=== PATIENT | female | born 1935 | race Caucasian/White ===

== ENCOUNTER → 2019-01-02 12:26 | Outpatient (CLI) | payer MEDICARE, OTHER, SELFPAY ==
--- NOTE | 2019-01-02 | DI.MRI.S_ITS ---
PROCEDURE: MR STROKE Pre- and post-contrast brain MRI, non-contrast brain MR angiogram, pre- and postcontrast neck MR angiogram INDICATIONS: Dizziness and giddiness TECHNIQUE: Brain: Noncontrast axial T1 spin echo, axial T2 fast spin echo, sagittal and axial FLAIR, coronal T2 fast spin echo, axial gradient echo, axial diffusion and ADC through the brain. After the administration of contrast, axial 3D VIBE of the cranial vasculature and brain. Brain MRA: Non-contrast 3-D time of flight MR angiogram, with multiple vufccwv-virnwrcvl-tlxekyfwkl (MIP) reformats performed. Neck MRA: Axial and sagittal TruFISP through the neck. Coronal dynamic MR angiogram during administration of contrast in the arterial and venous phases, with 3-dimenstional gkkmzgb-eqfsfcpjf-cqszsnsoxn (MIP) reformats constructed from subtraction images. COMPARISON: None. FINDINGS: Image quality: Excellent. BRAIN: CSF spaces: Ventricles are normal in size and shape. Basal cisterns are patent. No extra-axial fluid collections. Brain: No intracranial bleeds or mass effects. Mild diffuse cerebral volume loss. Mild degree of patchy high FLAIR signal within the periventricular and subcortical white matter. Monroe-white matter interface is normal. Diffusion weighted images show no acute ischemic insults. Brainstem appears normal. Normal intravascular flow voids are present. No abnormal intracranial enhancement. Skull and face: Calvarial marrow signal is normal. Orbits appear normal. Sinuses: Sinuses and mastoids are clear. BRAIN MR ANGIOGRAM: Anterior circulation: Intracranial internal carotid arteries are normal in size and enhancement. The flow within the paired anterior cerebral arteries is normal and symmetric. The flow within the middle cerebral arteries is normal and symmetric. The anterior communicating artery is seen. No stenoses, occlusions, or aneurysms. Posterior circulation: The visualized portions of the vertebral arteries demonstrate normal caliber, and join to form a normal appearing basilar artery. The flow within the posterior cerebral arteries is normal and symmetric. No stenoses, occlusions, or aneurysms. NECK MR ANGIOGRAM: Carotids: Great vessels demonstrate a conventional anatomy as they arise from the aortic arch. The origins of the common carotid arteries appear patent. The calibers and courses of both common carotid arteries are normal. The bifurcation regions appear normal bilaterally. The internal carotid arteries demonstrate normal course and caliber. Posterior circulation: The origins of the vertebral arteries appear patent. More superior portions of both vertebral arteries demonstrate normal course and caliber, and join to form a normal appearing basilar artery. Miscellaneous: Subclavian arteries appear patent. Pre-contrast images through the neck show no soft tissue abnormalities. IMPRESSION: BRAIN MRI: 1. No acute process. No recent infarct. 2. Mild line loss and small vessel ischemic disease. BRAIN MR ANGIOGRAM: Negative cerebral MR angiography. NECK MR ANGIOGRAM: 1. No internal carotid artery stenosis bilaterally. 2. Patent bilateral vertebral arteries. Dictated by: Roman Marie M.D. on 01/02/2019 at 15:06 Approved by: Roman Marie M.D. on 01/02/2019 at 15:11
== END ==
PROVIDERS: PCP Internal Medicine; Visit Provider Internal Medicine
DX: R42 Dizziness and giddiness (principal); I67.82 Cerebral ischemia
CPT/HCPCS: 70548; 70553; A9579

== ENCOUNTER 2019-01-05 14:52 | Emergency (ER) | payer MEDICARE, OTHER, SELFPAY ==
[2019-01-05 14:59] VITALS: BP 143/61; PULSE 91; RESP 16; TEMP 36.9; O2SAT 96; BMI 41.1
--- NOTE | 2019-01-05 15:37 | ED_ITS ---
HPI - Skin/Abscess/Foreign Bdy <ERICKA Myeer-BC - Last Filed: 01/05/19 16:22> General Chief complaint: Skin/Abscess/Foreign Body Stated complaint: Spider bite Time Seen by Provider: 01/05/19 14:58 Source: patient Mode of arrival: ambulatory Limitations: no limitations History of Present Illness HPI narrative: The patient is an 83-year-old female with history of diabetes who presents for chief complaint of an infected wound. She states that she was bit by a spider on her right upper arm on 12/20/2018. She states that she has been applying saline, baking soda and salt in order to help prevent infection, but has noted some green discharge over the past few days. She denies any fevers nausea vomiting or diarrhea. She states her recent hemoglobin A1c is 6.7. She denies any MRSA history or exposure. She states she is here to be evaluated as she brought a family member to the department today. Related Data Home Medications Medication Instructions Recorded Confirmed aspirin 81 mg PO DAILY 01/05/19 01/05/19 atorvastatin 40 mg PO DAILY 01/05/19 01/05/19 clotrimazole 1 applic TOPICAL DIRECTED 01/05/19 01/05/19 levothyroxine [Synthroid] 137 mcg PO DAILY 01/05/19 01/05/19 metformin 500 mg PO DAILY 01/05/19 01/05/19 telmisartan [Micardis] 20 mg PO DAILY 01/05/19 01/05/19 Previous Rx's Medication Instructions Recorded cephalexin 500 mg PO TID #30 cap 01/05/19 Allergies Allergy/AdvReac Type Severity Reaction Status Date / Time No Known Drug Allergies Allergy Verified 01/05/19 16:18 Review of Systems <KAILA Meyer - Last Filed: 01/05/19 16:22> Review of Systems GENERAL: Denies chills, fatigue, malaise, fever, sweats. HEENT: Denies sinus pain, ear pain, sore throat, difficulty swallowing, dizziness. RESPIRATORY: Denies dyspnea, cough, wheezing, hemoptysis, sputum. CARDIOVASCULAR: Denies chest pain, palpitations, orthopnea, edema, GASTROINTESTINAL: Denies nausea, vomiting, abdominal pain, diarrhea, constipa tion, melena. : Denies dysuria, frequency, incontinence, hematuria, urinary retention. MUSCULOSKELETAL: denies weakness, joint pain, or bony pain SKIN: See HPI NEUROLOGIC: Denies weakness, headache, numbness, change in speech, confusion, seizures, incoordination. PSYCHIATRIC: No concerning psychosocial issues. 12 point review of systems is negative except for those stated above PFSH <KAILA Meyer - Last Filed: 01/05/19 16:22> Medical History (Updated 01/05/19 @ 16:19 by KAILA Meyer) Diabetes (Acute) Hypertension (Acute) Social History (Updated 01/05/19 @ 16:19 by KAILA Meyer) marital status: Smoking Status: Unknown if ever smoked Social History (Updated 01/05/19 @ 16:19 by KAILA Meyer) marital status: Smoking Status: Unknown if ever smoked Exam <KAILA Meyer - Last Filed: 01/05/19 16:22> Narrative Exam Narrative: GENERAL: Obese female in no acute distress HEAD: Atraumatic. Normocephalic. No temporal or scalp tenderness. EYES: Pupils equal round and reactive. Extraocular motions intact. No scleral icterus. No injection or drainage. ENT: Nose without bleeding, purulent drainage or septal hematoma. Throat without erythema, tonsillar hypertrophy or exudate. Uvula midline. Airway patent. NECK: Trachea midline. No JVD or lymphadenopathy. Supple, nontender, no meningeal signs. CARDIOVASCULAR: Regular rate and rhythm RESPIRATORY: Clear to auscultation. Breath sounds equal bilaterally. No wheezes, rales, or rhonchi. No cough. No increased respiratory effort. No accessory muscle use. GASTROINTESTINAL: Abdomen soft, non-tender, nondistended. No hepato- splenomegaly, or palpable masses. No guarding. Active bowel sounds all 4 quadrants EXTREMITIES: No clubbing, cyanosis, or edema. No joint tenderness, effusion, or edema noted. BACK: Nontender without deformity or crepitance. No flank tenderness. NEURO: AOx3. SKIN: 0.5 cm wound noted on anterior aspect of right upper arm, with purulent drainage noted. Slight surrounding erythema noted. Initial Vital Signs Initial Vital Signs: Vital Signs Temperature 98.5 F 01/05/19 14:59 Pulse Rate 91 H 01/05/19 14:59 Respiratory Rate 16 01/05/19 14:59 Blood Pressure 143/61 H 01/05/19 14:59 Pulse Oximetry 96 01/05/19 14:59 <Yocasta Wynne DO - Last Filed: 01/06/19 07:22> Initial Vital Signs Initial Vital Signs: Vital Signs Temperature 98.5 F 01/05/19 14:59 Pulse Rate 91 H 01/05/19 14:59 Respiratory Rate 16 01/05/19 14:59 Blood Pressure 143/61 H 01/05/19 14:59 Pulse Oximetry 96 01/05/19 14:59 Course <KAILA Meyer - Last Filed: 01/05/19 16:22> Orders Ordered: ED Orders 01/05/19 15:27 Wound Culture and Gram Stain Stat Vital Signs - 8 hr 01/05/19 14:59 Temperature 98.5 F Pulse Rate 91 H Respiratory Rate 16 Blood Pressure 143/61 H Pulse Oximetry 96 <Yocasta Wynne DO - Last Filed: 01/06/19 07:22> Orders Ordered: ED Orders 01/05/19 15:27 Wound Culture and Gram Stain Stat Vital Signs - 8 hr 01/05/19 14:59 Temperature 98.5 F Pulse Rate 91 H Respiratory Rate 16 Blood Pressure 143/61 H Pulse Oximetry 96 MDM - Skin/Abscess/Foreign Bdy <KAILA Meyer - Last Filed: 01/05/19 16:22> MDM Narrative Medical decision making narrative: The patient is an 83-year-old male who presents with a chief complaint of a wound on her arm. Given that she does have diabetes, and has been there for over 2 weeks with. Discharge instructing erythema, initiated antibiotic therapy. And wound cultures taken. She has no signs of systemic infection. I discussed at length following up with primary care provider in the next few days. Discussed come back to ER for any acute concerns such as fever or inability keep down fluids. Patient has no questions or concerns upon discharge. Discharge Plan Departure Patient Disposition: Home Clinical Impression: Infected wound Discharge Date/Time: 01/05/19 15:46 Interventions: ED Discharge Assessment Last Done: 01/05/19 15:45 Instructions: DI for Wound Infection Activity Restrictions/Additional Instructions: I have started you on antibiotics for your wound infection. Please follow up with primary care provider We have sent off a wound culture, which will result in 48-72 hours. If Antibiotics need to be changed, you will receive a phone call. Prescriptions: New cephalexin 500 mg capsule 500 mg PO TID Qty: 30 RF: 0 No Action atorvastatin 40 mg tablet 40 mg PO DAILY RF: 0 aspirin 81 mg tablet,delayed release (DR/EC) 81 mg PO DAILY RF: 0 clotrimazole 1 % cream 1 applic topical DIRECTED RF: 0 metformin 500 mg tablet 500 mg PO DAILY RF: 0 levothyroxine [Synthroid] 137 mcg tablet 137 mcg PO DAILY RF: 0 telmisartan [Micardis] 20 mg tablet 20 mg PO DAILY RF: 0 <Yocasta Wynne DO - Last Filed: 01/06/19 07:22> Cosign ED Attending Yusuf Attestation: I was immediately available in the department for consultation. Documentation has been reviewed. I agree with assessment and plan.
== END 2019-01-05 15:46 | disposition home or self-care (01) ==
PROVIDERS: Emergency Provider Nurse Practitioner Family
DX: S40.861A Insect bite (nonvenomous) of right upper arm, initial encounter (principal); L08.89 Other specified local infections of the skin and subcutaneous tissue
CPT/HCPCS: 87070; 87075; 87077; 87147; 87186; 87205; 99282; 99283

== ENCOUNTER 2019-04-15 13:56 | Emergency (ER) | payer MEDICARE, OTHER, SELFPAY ==
[2019-04-15 14:02] VITALS: BP 153/68; PULSE 80; RESP 20; TEMP 36.5; O2SAT 98
--- NOTE | 2019-04-15 14:24 | ED_ITS ---
HPI - Skin/Abscess/Foreign Bdy General Chief complaint: Skin/Abscess/Foreign Body Stated complaint: Bad Rash under left Armpit Time Seen by Provider: 04/15/19 14:23 Source: patient Mode of arrival: Ambulatory Limitations: no limitations History of Present Illness HPI narrative: 83-year-old female comes to the emergency department with complaint of a rash in her left armpit. Patient states that it has been going o n for couple weeks. She states she had MRSA rash in the past. She states she has been using an appointment which has been somewhat helpful. She shows me a triamcinolone cream. She states the redness has not really resolved, there were several blisters which are resolving but there is a centralized blister that opened up and has been draining a little bit of pus-like material. Patient states a little bit painful. She denies any fevers, no numbness, no tingling or weakness. No swelling of upper extremity, no redness spreading. She denies any chest pain, no shortness of breath, no nausea, no vomiting or other GI or urinary symptoms. She denies that the rash is spreading. She states that she tried to get in with her primary care but has been unsuccessful so far and the instructions on the triamcinolone sent to use no longer than 2 weeks so she felt she should be evaluated. Related Data Home Medications Medication Instructions Recorded Confirmed aspirin 81 mg PO DAILY 01/05/19 01/05/19 atorvastatin 40 mg PO DAILY 01/05/19 01/05/19 clotrimazole 1 applic TOPICAL DIRECTED 01/05/19 01/05/19 levothyroxine [Synthroid] 137 mcg PO DAILY 01/05/19 01/05/19 metformin 500 mg PO DAILY 01/05/19 01/05/19 telmisartan [Micardis] 20 mg PO DAILY 01/05/19 01/05/19 Previous Rx's Medication Instructions Recorded cephalexin 500 mg PO TID #30 cap 01/05/19 clindamycin HCl 300 mg PO Q6H #28 cap 04/15/19 Allergies Allergy/AdvReac Type Severity Reaction Status Date / Time No Known Drug Allergies Allergy Verified 01/05/19 16:18 Review of Systems Review of Systems ROS Unobtainable: All systems reviewed & are unremarkable except as noted in HPI and below Patient History Medical History Diabetes (Acute) Hypertension (Acute) Social History marital status: Smoking Status: Unknown if ever smoked alcohol intake frequency: holidays/special occasions only Substance Use Type: does not use Exam Narrative Exam Narrative: GENERAL: Alert and oriented x three, obese female in no acute distress. HEENT: Head normocephalic, atraumatic, EOMI, pupils reactive, face symmetric, moist mucous membranes NECK: Supple, full range of motion CARDIOVASCULAR: Regular rate and rhythm without murmurs, rubs or gallops. RESPIRATORY: Breath sounds equal bilaterally, no wheezes rales or rhonchi. ABDOMEN: Soft, nontender. Normoactive bowel sounds all 4 quadrants. No guarding or rebound, rigidity, no mass : No CVA tenderness EXTREMITIES: Normal range of motion, no clubbing or edema. Neurovascularly intact. patient has patchy erythematous rash in her left axilla. There are several small pustules and in the center there is a 0.5 cm draining lesion. There is a little bit of purulence fluid but I am unable to express additional and there is no large fluid collection or fluctuance noted. area is slightly warm. Nontender to touch. NEUROLOGICAL: Cranial nerves II through XII grossly intact. Moving all extremities SKIN: Warm, dry, no petechiae, see above. Initial Vital Signs Initial Vital Signs: Vital Signs Temperature 97.7 F 04/15/19 14:02 Pulse Rate 80 04/15/19 14:02 Respiratory Rate 20 04/15/19 14:02 Blood Pressure 153/68 H 04/15/19 14:02 Pulse Oximetry 98 04/15/19 14:02 Course Orders Ordered: ED Orders 04/15/19 14:58 Wound Culture and Gram Stain Stat Vital Signs Vital signs: Vital Signs - 8 hr 04/15/19 14:02 Temperature 97.7 F Pulse Rate 80 Respiratory Rate 20 Blood Pressure 153/68 H Pulse Oximetry 98 MDM - Skin/Abscess/Foreign Bdy MDM Narrative Medical decision making narrative: Patient wound culture was obtained and sent. She has been using triamcinolone which may be helpful if there is a fungal component but she appears to have a little bit of a bacterial infection with a single small open wound that is draining a very small amount of purulent material. I feel that patient would likely benefit from an oral antibiotic as she has been performing basic wound care and using her topical antifungal daily. Discharge Plan Departure Patient Disposition: Home Clinical Impression: Cellulitis of axilla, left Discharge Date/Time: 04/15/19 14:59 Instructions: DI for Cellulitis -- Adult Activity Restrictions/Additional Instructions: Follow-up with primary care in the next week for recheck. Call Wednesday morning for an appointment. Take oral antibiotics until gone. Continue home medications as prescribed. I would recommend stopping the clotrimazole topical ointment on your axilla for the time being. Return emergency department for fevers greater than 100.4 F, rapidly worsening or spreading redness, increasing swelling, increasing pain, new weakness, numbness or other new or concerning changes. Prescriptions: New clindamycin HCl 300 mg capsule 300 mg PO Q6H Qty: 28 RF: 0 No Action cephalexin 500 mg capsule 500 mg PO TID Qty: 30 RF: 0 atorvastatin 40 mg tablet 40 mg PO DAILY RF: 0 aspirin 81 mg tablet,delayed release (DR/EC) 81 mg PO DAILY RF: 0 clotrimazole 1 % cream 1 applic topical DIRECTED RF: 0 metformin 500 mg tablet 500 mg PO DAILY RF: 0 levothyroxine [Synthroid] 137 mcg tablet 137 mcg PO DAILY RF: 0 telmisartan [Micardis] 20 mg tablet 20 mg PO DAILY RF: 0 Referrals: Sheela Brink [Primary Care Provider] -
--- NOTE | 2019-04-15 14:54 | PC.NURSE ---
left underarm rash, treated with triamcelone for 14 days, pt concern after 14 days not gone.
== END 2019-04-15 14:59 | disposition home or self-care (01) ==
PROVIDERS: Emergency Provider Emergency Medicine; PCP Internal Medicine
DX: L03.112 Cellulitis of left axilla (principal); E11.9 Type 2 diabetes mellitus without complications; I10 Essential (primary) hypertension
CPT/HCPCS: 87070; 87077; 87147; 87186; 87205; 99282; 99283

== ENCOUNTER 2022-07-03 13:16 | Emergency (ER) | payer MEDICARE, OTHER, SELFPAY ==
[2022-07-03] VITALS (7 sets, daily range): BP systolic 120–122; BP diastolic 56–63; PULSE 57–85; RESP 16–21; TEMP 36.8; O2SAT 95–97; BMI 38.0
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
[2022-07-03 15:53] LABS: Add Manual Diff / Slide Review NO; Basophils Absolute Auto 0 /uL (0-100); Basophils Percent Auto 0.8 % (0-2); Eosinophils Absolute Auto 100 /uL (0-450); Eosinophils Percent Auto 2.6 % (2-4); Hematocrit 40.2 % (36-46); Hemoglobin 13.4 g/dL (12.0-16.0); Lymphocytes Absolute Auto 1000 /uL (1100-4500); Lymphocytes Percent Auto 20.2 % (25-40); Mean Corpuscular HGB Conc 33.3 % (30-36); Mean Corpuscular Hemoglobin 29.7 PG (26-34); Mean Corpuscular Volume 89.1 fL (80-100); Monocytes Absolute Auto 600 /uL (0-900); Monocytes Percent Auto 12.8 % (3-14); Neutrophils Absolute Auto 3100 /uL (1500-7000); Neutrophils Percent Auto 63.6 % (50-75); Platelet Count 181 X10^3/uL (150-400); Red Blood Cell Count 4.51 X10^6/uL (4.0-5.2); Red Cell Distribution Width 13.3 % (11.6-14.8); White Blood Cell Count 4.8 X10^3/uL (4.5-11.0)
[2022-07-03 16:01] LABS: INR 1.2 (0.9-1.3); Prothrombin Time 13.8 SECONDS (10.1-12.7)
[2022-07-03 16:11] LABS: Alanine Aminotransferase 19 IU/L (<35); Albumin 3.7 g/dL (3.5-5.0); Albumin Globulin Ratio 1.1 (1.0-2.8); Alkaline Phosphatase 74 U/L (38-126); Aspartate Aminotransferase 32 IU/L (14-36); BUN Creatinine Ratio 29.1 (6-22); Bilirubin Total 0.6 mg/dL (0.2-1.3); Blood Urea Nitrogen 30 mg/dL (7-17); Calcium 8.2 mg/dL (8.4-10.2); Carbon Dioxide 26 mmol/L (22-32); Chloride 99 mmol/L (98-107); Estimated Glomerular Filt Rate 54 mL/min (>60); Globulin 3.5 g/dL (1.7-4.1); Glucose 103 mg/dL (80-110); HEMOLYSIS < 15 (0-50); Magnesium 1.6 mg/dL (1.6-2.3); PTT Partial Thromboplastin Tim 30 SECONDS (26-36); Potassium 3.7 mmol/L (3.4-5.1); Sodium 134 mmol/L (137-145); Total Protein 7.2 g/dL (6.3-8.2)
[2022-07-03 16:50] LABS: Influenza A - CEPHEID Flu A NEGATIVE (NEGATIVE); Influenza B - CEPHEID Flu B NEGATIVE (NEGATIVE); Respiratory Syncytial Virus Negative (Negative)
[2022-07-03 17:16] LABS: COVID-19 CEPHEID 4-PLEX PCR POSITIVE (Negative)
== END 2022-07-03 17:49 | disposition home or self-care (01) ==
PROVIDERS: Emergency Provider Nurse Practitioner Critical Care Medicine; PCP Internal Medicine
DX: U07.1 COVID-19 (principal); T59.811D Toxic effect of smoke, accidental (unintentional), subsequent encounter; R59.0 Localized enlarged lymph nodes
CPT/HCPCS: 0241U; 36415; 71046; 71260; 80053; 83735; 85025; 85610; 85730; 99284; Q9967